=== PATIENT | female | born 1985 ===

== ENCOUNTER 2024-04-07 12:05 | Outpatient (CLI) | payer BC | END 2024-04-07 12:06 | disposition home or self-care (01) | LOC: CSHMAMMO 12:05 | PROVIDERS: ATTEND Nurse Practitioner Family | DX: Z12.31 Encounter for screening mammogram for malignant neoplasm of breast (principal); Z80.3 Family history of malignant neoplasm of breast | CPT/HCPCS: 77063; 77067 ==

== ENCOUNTER 2025-04-25 08:35 | Outpatient (CLI) | payer BC | END 2025-04-25 08:36 | disposition home or self-care (01) | LOC: CSHMAMMO 08:35 | PROVIDERS: ATTEND Nurse Practitioner Family | DX: Z12.31 Encounter for screening mammogram for malignant neoplasm of breast (principal); Z80.3 Family history of malignant neoplasm of breast | CPT/HCPCS: 77063; 77067 ==

== ENCOUNTER 2025-07-31 09:03 | Outpatient (CLI) | payer BC | END 2025-07-31 09:04 | disposition home or self-care (01) | LOC: CSHSLEEP 09:03 | PROVIDERS: ATTEND Nurse Practitioner Family | DX: G47.9 Sleep disorder, unspecified (principal); F32.A Depression, unspecified; E66.9 Obesity, unspecified; Z68.36 Body mass index [BMI] 36.0-36.9, adult; G47.33 Obstructive sleep apnea (adult) (pediatric) | CPT/HCPCS: 95800 ==